=== PATIENT | male | born 1970 | race Caucasian/White ===

== ENCOUNTER 2020-06-17 09:41 | Emergency (ER) | payer OTHER, SELFPAY ==
[2020-06-17 10:02] VITALS: BP 118/66; PULSE 72; RESP 14; TEMP 36.5; O2SAT 100; BMI 22.2
--- NOTE | 2020-06-17 10:24 | CT_ITS ---
WS: [id number] CT LUMBAR SPINE TECHNIQUE: Noncontrast CT of the lumbar spine with coronal and sagittal reformatted images. CLINICAL INFORMATION: back pain with BLE radiculopathy COMPARISON: None. DLP: 1834.[address] scans at [facility] use at least one of these dose optimization techniques: automat ed exposure control; mA and/or kV adjustment per patient size (includes targeted exams where dose is matched to clinical indication); or iterative reconstruction. FINDINGS: Mild lumbar curve convex right. No acute compression fractures. Disc space heights and vertebral body heights are well preserved. L1-L2: Normal. L2-L3: Normal. L3-L4: Mild annular bulging. Small central protrusion. Slight effacement of ventral thecal sac with m ild central canal stenosis. Slight narrowing of the left greater than right subarticular recess. Fora men are patent. Mild facet arthropathy. L4-L5: Mild annular bulging. Moderate facet arthropathy. Spinal canal and foramen are patent. Moderat e facet arthropathy. L5-S1: Shallow left pericentral protrusion. Slight impingement traversing left S1 nerve root. Moderat e left and no significant right foraminal narrowing. Slight impingement on the exiting left L5 nerve root. Right foramen is patent. Mild facet arthropathy with ligamentum flavum hypertrophy. Visualized pelvic bony structures: Normal. Paravertebral soft tissues: Normal. CT/CT lumbar spine wo con* [id number] IMPRESSION: 1. Mild lumbar curve. No acute compression. No high-grade central canal stenos is. 2. Left pericentral protrusion L5-S1 slightly impinges the traversing left S1 nerve root in the subarticular recess. Moderate left foraminal narrowing. Corre lation for left L5 and left S1 nerve root symptoms. 3. Tiny shallow central disc protrusion L3-4 with slight effacement of ventral thecal sac and encroachment traversing L4 nerve roots bilaterally. Mild centra l canal stenosis. 4. Mild facet arthropathy L4-L5 and L5-S1.
[2020-06-17] MEDS: ketorolac 60 mg/2 mL INJ IM (10:41)
[2020-06-17] MEDS: orphenadrine 30 mg/mL Inj 2 mL 60 MG IM (10:42)
--- NOTE | 2020-06-17 11:01 | ED_ITS ---
HPI - Back Pain/Injury General: Chief Complaint: Back Pain/Injury Stated Complaint: BACK INJURY Time Seen by Provider: 06/17/20 10:23 History of Present Illness: HPI Narrative: 50-year-old male patient presents to the emergency department with acute onset of low back pain after lifting a heavy pallet while at work. He reports was attempting a 2 man lift of approximately 125 pounds when he overextended his back. He reports during lifting, his legs buckled causing him to have extreme pain with electrical shooting pain down both legs. He would denies history of low back pain. He reports as long as he remains still, the pain subsides. MD elicited complaint: back pain Onset (ago): hour(s) (1) Timing: intermittent Severity: moderate Similar Symptoms Previously: No Quality: burning, sharp, stabbing and spasming Location: lumbar spine Exacerbating factors: movement Relieving factors: immobilization Context: while lifting and turning/twisting Associated symptoms: Reports difficulty walking and tingling/numbness/burning (BLE at onset of pain); Deny abdominal pain, chills, dysuria, fever(s), nausea or vomiting Treatments prior to arrival: other (none) Review of Systems General: Reports: 10 or more systems reviewed and unremarkable except in HPI and below Const: Denies: fever(s), chills or diaphoresis Eyes: Denies: blurry vision or eye redness ENMT: Denies: throat pain, dental pain or disequilibrium Card: Denies: chest pain, palpitations or irregular heart rhythm Resp: Denies: dyspnea, productive cough, non-productive cough or wheezing GI: Denies: abdominal pain, nausea or vomiting : Denies: dysuria Musc: Reports: back pain and limited range of motion (lumbar spine); Denies: neck pain or extremity pain Skin/Breast: Denies: rash or pruritus Neuro: Reports: difficulty walking Psych: Denies: anxiety or depression Alfonso/Lymph: Denies: easy bruising Physical Exam Const: COMMON NORMALS: no acute distress, patient oriented x3, healthy appearing and alert GENERAL APPEARANCE: cooperative, well hydrated and other (appears in pain) NUTRITIONAL APPEARANCE: thin ORIENTATION/CONSCIOUSNESS: Yes awake, Yes oriented to person, Yes oriented to place and Yes oriented to time HENMT: COMMON NORMALS: normocephalic, atraumatic, EAC's normal, Normal external nose present and moist oral mucous membranes HEAD & SCALP: normal to inspection, normocephalic and atraumatic FACE & SINUS: normal facial exam NOSE: Normal external nose present EXTERNAL AUDITORY CANAL: EAC's normal MOUTH: Normal oral and palatal mucosa present THROAT: posterior oropharynx normal Eye: COMMON NORMALS: Equal, round and reactive pupils present and EOMs intact bilaterally GENERAL EYE: appearance normal, both eyes and all related structures PUPIL: Yes Equal, round and reactive pupils present Neck/C-Spine: COMMON NORMALS: full ROM and no lymphadenopathy GENERAL: Yes normal visual inspection and Yes trachea midline CERVICAL SPINE: Yes cervical ROM normal, Yes normal cervical lordosis, No pain with cervical ROM and No Cervical spine tenderness Lymph: LYMPHATIC: no lymphadenopathy noted Chest: COMMONS NORMALS: normal inspection of the chest Resp: COMMON NORMALS: normal respiratory effort and clear to auscultation bilaterally AUSCULTATION: clear to auscultation bilaterally and lung sounds not diminished Cardio: COMMON NORMALS: regular rhythm, S1 normal heart sound present, S2 normal heart sound present and Peripheral pulses 2+ throughout RHYTHM: regular rhythm HEART SOUNDS: S1 normal heart sound present and S2 normal heart sound present PERIPHERAL PULSES: Peripheral pulses 2+ throughout GI: COMMON NORMALS: Soft to palpation and non-tender INSPECTION: Yes normal to inspection AUSCULTATION: Yes normoactive bowel sounds PALPATION: Yes Soft to palpation and No Tenderness to palpation present (GI) : COMMON NORMALS: Yes no CVA tenderness BLADDER/KIDNEY EXAM: Yes no CVA tenderness Back/Pelvis: COMMON NORMALS: no CVA tenderness THORACIC SPINE/UPPER BACK: Yes normal to inspection and Yes thoracic ROM normal LUMBAR SPINE/LOWER BACK: Yes ROM limited, Yes lumbar spinal tenderness, Yes paraspinal muscle spasm, Yes straight leg raise positive right and Yes straight leg raise positive left SACROILIAC JOINTS: Yes SI joints normal Extremity: COMMON NORMALS: normal to inspection and capillary refill normal Neuro: COMMON NORMALS: patient oriented x3 and no focal motor deficits SENSORIUM/ORIENTATION: Yes alert, Yes oriented to person, Yes oriented to place and Yes oriented to time MONOFILAMENT EXAM PERFORMED: Yes Monofilament Exam (small fiber function): L great toe: normal, L 3rd toe: normal, L 5th toe: normal, Left medial mid foot: normal, Left lateral mid-foot: normal, R great toe: normal, R 3rd toe: normal, R 5th toe: normal, Right mid-heel: normal and Right mid-dorsum foot: normal MOTOR EXAM: 5/5 motor strength present throughout Psych: COMMON NORMALS: mental status grossly normal, Normal thought process present and cooperative ACTIVITY/MOTOR BEHAVIOR: Yes appropriate eye contact THOUGHT PROCESS: Normal thought process present Skin: COMMON NORMALS: no rashes or lesions noted and turgor normal GENERAL SKIN EXAM: no rashes or lesions noted and turgor normal Course ED course: 50-year-old male patient presents to the emergency department with acute onset of low back pain following a lifting/bending of heavy object while at work. CT scan completed in the emergency department secondary to new onset of bilateral radiculopathy symptoms he experienced during injury. CT results revealed left paracentral protrusion of L5-S1 impinging transverse left S1 root, tiny shallow central disc protrusion L3-L4 with slight effacement of ventral thecal sac and regiment transversing L4 nerve root bilateral. Monofilament exam negative upon exam, he was able to ambulate in the ED without weakness. Patient was counseled regarding CT results of his lumbar spine, advised against twisting bending or lifting greater than 10 pounds until follow-up with Workmen's Comp. He verbalized understanding. Prescription of ibuprofen and cyclobenzaprine given. Advised no driving or operating heavy machinery with with use of Flexeril. Verbalized understanding, questions were answered. Agrees to return to the emergency department if he experiences bladder or bowel incontinence, bilateral lower extremity weakness, or worsening back pain. Vital Signs: Vital signs: Vital Signs Temperature 97.7 F 06/17/20 10:02 Pulse Rate 66 06/17/20 12:36 Respiratory Rate 18 06/17/20 12:36 Blood Pressure 120/77 06/17/20 12:36 Pulse Oximetry 97 06/17/20 12:36 MDM - Back Pain/Injury Imaging Data^: Other CT: Radiologist's impression: [address] [address] [address] Scan Report Signed Patient: Gonzalo De La Fuente Unit #: [id number] : 1970 Age/Sex: 50 / M ADM Date: 06/17/20 Loc: ER Room/Bed: Attending Dr: Ordering Provider/Ordering MD: Dayna Childers Date of Service: 06/17/20 Procedure(s): CT lumbar spine wo con* [id number] Accession Number(s): [id number] Report Number: [id number] WS: [id number] CT LUMBAR SPINE TECHNIQUE: Noncontrast CT of the lumbar spine with coronal and sagittal reformatted images. CLINICAL INFORMATION: back pain with BLE radiculopathy COMPARISON: None. DLP: 1834.[address] scans at [facility] use at least one of these dose optimization techniques: automated exposure control; mA and/or kV adjustment per patient size (includes targeted exams where dose is matched to clinical indication); or iterative reconstruction. FINDINGS: Mild lumbar curve convex right. No acute compression fractures. Disc space heights and vertebral body heights are well preserved. L1-L2: Normal. L2-L3: Normal. L3-L4: Mild annular bulging. Small central protrusion. Slight effacement of ventral thecal sac with mild central canal stenosis. Slight narrowing of the left greater than right subarticular recess. Foramen are patent. Mild facet arthropathy. L4-L5: Mild annular bulging. Moderate facet arthropathy. Spinal canal and fora men are patent. Moderate facet arthropathy. L5-S1: Shallow left pericentral protrusion. Slight impingement traversing left S1 nerve root. Moderate left and no significant right foraminal narrowing. Slight impingement on the exiting left L5 nerve root. Right foramen is patent. Mild facet arthropathy with ligamentum flavum hypertrophy. Visualized pelvic bony structures: Normal. Paravertebral soft tissues: Normal. CT/CT lumbar spine wo con* [id number] IMPRESSION: 1. Mild lumbar curve. No acute compression. No high-grade central canal stenosis. 2. Left pericentral protrusion L5-S1 slightly impinges the traversing left S1 nerve root in the subarticular recess. Moderate left foraminal narrowing. Correlation for left L5 and left S1 nerve root symptoms. 3. Tiny shallow central disc protrusion L3-4 with slight effacement of ventral thecal sac and encroachment traversing L4 nerve roots bilaterally. Mild central canal stenosis. 4. Mild facet arthropathy L4-L5 and L5-S1. Dictated By: Karthik Quevedo MD Signed By: Karthik Quevedo MD Signed Date/Time: 06/17/20 1138 DD/ 1131 Discharge Plan Discharge Patient Disposition: Home Clinical Impression: Lumbar radiculopathy Strain of lumbar region Qualifiers: Encounter type: initial encounter Qualified Code(s): S39.012A - Strain of muscle, fascia and tendon of lower back, initial encounter Condition: Stable Prescriptions: New cyclobenzaprine 10 mg tablet 10 mg PO TID PRN (Reason: muscle spasm) Qty: 10 RF: 0 IBU 800 mg tablet 800 mg PO TID PRN (Reason: pain) Qty: 20 RF: 0 Discharge Orders: Discharge Order (Routine); Ordered 06/17/20 Ordered By: Dayna Childers Referrals: Julio Granados MD [Primary Care Provider] - Discharge Diet: Usual diet Discharge Activity: Limit activity as instructed Patient Instructions: Low Back Strain (ED), Acute Low Back Pain (ED), Lumbar Radiculopathy (ED) Activity Restrictions/Additional Instructions: Return to the emergency department if you develop weakness in the bilateral lower extremities, inability to stand or loss of bowel/bladder control Will need to follow-up with Workmen's Comp for further evaluation and potential specialty testing such as MRI No bending or twisting at the waist until cleared by Workmen's Comp. No lifting over 10 pounds You may apply ice/alternate with warm moist heat to the lower back as needed for pain You may apply salon pas/[id number] topical patches to the area as needed f or pain. Stand Alone Forms: Work/School Release Discharge Date/Time: 06/17/20 12:36 Coding Level of Care Code ED [employer] Exam Comprehensive
[2020-06-17 12:36] VITALS: BP 120/77; PULSE 66; RESP 18; O2SAT 97
== END 2020-06-17 12:36 | disposition home or self-care (01) ==
PROVIDERS: Emergency Provider Nurse Practitioner Family; PCP Family Medicine
DX: S39.012A Strain of muscle, fascia and tendon of lower back, initial encounter (principal); M54.16 Radiculopathy, lumbar region; X50.0XXA Overexertion from strenuous movement or load, initial encounter; Y99.0 Civilian activity done for income or pay
CPT/HCPCS: 12345; 72131; 96372; 99281; 99283; J1885; J2360

== ENCOUNTER → 2023-03-15 09:02 | Outpatient (BNVA) | payer OTHER, SELFPAY | PROVIDERS: PCP Family Medicine; Visit Provider Nurse Practitioner Family | DX: R50.9 Fever, unspecified (principal) | CPT/HCPCS: 81003 ==

== ENCOUNTER 2023-08-03 04:02 | Emergency (ER) | payer OTHER, SELFPAY ==
[2023-08-03 04:09] VITALS: BP 121/65; PULSE 80; RESP 16; TEMP 37.2; O2SAT 96; BMI 20.7
--- NOTE | 2023-08-03 04:25 | W.ED.BACK ---
HPI - Back Pain/Injury General: Chief Complaint: Back Pain/Injury Stated Complaint: Back Injury Time Seen by Provider: 08/03/23 04:24 History of Present Illness: Patient presents to the ER with complaints of low back pain and spasms.. Patient does not have any known triggers or injuries to his back yesterday. Patient's back started hurting at 9 AM yesterday morning and is just gotten worse throughout the yesterday and last night. Patient did injure his back 3 years ago and has a history of 2 herniated disks and never had surgery. But this never caused him any problems until yesterday. Patient does not take any medication for his back pain. Patient denies any hematuria dysuria nausea vomiting diarrhea fevers chills.. Review of Systems General: Reports: 10 or more systems reviewed and unremarkable except in HPI and below PFSH ED PFSH: Medical History History of MRSA infection No pertinent past medical history Social History Smoking and tobacco/nicotine status: current every day tobacco/nicotine user cigarettes Packs smoked per day: 1 Years cigarettes smoked: 30 Second hand smoke exposure: No Alcohol intake: current Alcohol intake frequency: few times a week Substance/Drug Use: never Household members: spouse Special damon needs: No Physical Exam Const: COMMON NORMALS: no acute distress, average body habitus, patient oriented x3, no limitations, alert and well nourished HENMT: COMMON NORMALS: normocephalic, atraumatic, hearing grossly normal bilaterally, external ears normal, Normal external nose present and oropharynx normal HEAD & SCALP: normocephalic and atraumatic NOSE: Normal external nose present EXTERNAL EAR: Yes external ears normal Neck/C-Spine: COMMON NORMALS: no JVD Chest: COMMONS NORMALS: normal inspection of the chest and normal palpation of entire chest wall Resp: COMMON NORMALS: normal respiratory effort, No retractions, No use of accessory muscles and clear to auscultation bilaterally AUSCULTATION: clear to auscultation bilaterally Cardio: COMMON NORMALS: no JVD, regular rate, regular rhythm, S1 normal heart sound present, S2 normal heart sound present, No gallops present (Cardio), No clicks present (Cardio), No murmurs present (Cardio) and No rub (Cardio) RATE: regular rate RHYTHM: regular rhythm HEART SOUNDS: S1 normal heart sound present and S2 normal heart sound present GI: COMMON NORMALS: Normal to inspection, nondistended, normoactive bowel sounds present, Soft to palpation, non-tender, No hepatosplenomegaly present and no masses PALPATION: Yes Soft to palpation and Yes No hepatosplenomegaly present Back/Pelvis: OTHER: Bilateral lumbar paraspinal muscular tenderness to palpation and spasm. Right worse than left. Neuro: COMMON NORMALS: patient oriented x3 SENSORIUM/ORIENTATION: Yes alert Course Vital Signs: Vital signs: Vital Signs Temperature 98.9 F 08/03/23 06:02 Pulse Rate 80 08/03/23 06:02 Respiratory Rate 16 08/03/23 06:02 Blood Pressure 121/65 08/03/23 06:02 Pulse Oximetry 96 08/03/23 06:02 MDM - Back Pain/Injury Medical Decision Making Patient presents to the ER with low back pain but no new injury. Patient was given a shot of Toradol and Norflex which made the pain feel much better. Patient be discharged home with a prescription for meloxicam and cyclobenzaprine and is to follow-up with his PCP in approximately 7 to 10 days. Differential Diagnosis Likely strain of lumbar region; Unlikely lumbar radiculopathy, sciatica, renal colic, pyelonephritis, thoracic back pain, AAA or discitis Medical Records I reviewed the patient's medical records. Labs I reviewed the patient's lab results. No radiology studies performed this visit Discharge Plan Discharge Patient Disposition: Home Clinical Impression: Strain of lumbar region Qualifiers: Encounter type: initial encounter Qualified Code(s): S39.012A - Strain of muscle, fascia and tendon of lower back, initial encounter Condition: Stable Prescriptions: New meloxicam 15 mg tablet 15 mg PO DAILY Qty: 7 0RF cyclobenzaprine 5 mg tablet 5 mg PO Q8H PRN (Reason: muscle spasm) Qty: 14 0RF No Action amoxicillin-pot clavulanate 875-125 mg tablet 1 tab PO BID 10 Days Qty: 20 0RF Discharge Orders: Discharge ED (Routine); Ordered 08/03/23 Ordered By: Ronak Wei Patient Instructions: Low Back Strain (ED) Coding Level of Care Code ED [employer]
[2023-08-03] MEDS: orphenadrine 30 mg/mL Inj 2 mL 60 MG IM (04:34)
[2023-08-03] MEDS: ketorolac 60 mg/2 mL INJ IM (04:34)
[2023-08-03 06:02] VITALS: BP 121/65; PULSE 80; RESP 16; TEMP 37.2; O2SAT 96
== END 2023-08-03 06:03 | disposition home or self-care (01) ==
PROVIDERS: Emergency Provider Emergency Medicine
DX: S39.012A Strain of muscle, fascia and tendon of lower back, initial encounter (principal); F17.210 Nicotine dependence, cigarettes, uncomplicated; X58.XXXA Exposure to other specified factors, initial encounter
CPT/HCPCS: 96372; 99284; J1885; J2360